=== PATIENT | male | born 1945 | race Caucasian/White ===

== ENCOUNTER → 2025-03-17 09:33 | Outpatient (REF) | payer MEDICARE, SELFPAY | LOC: WDC 09:33 | PROVIDERS: ATTENDING PHYSICIAN Student in an Organized Health Care Education/Training Program | DX: N63.23 Unspecified lump in the left breast, lower outer quadrant (principal) | CPT/HCPCS: 76642; 77062; 77066 ==

== ENCOUNTER → 2025-03-29 11:29 | Outpatient (REF) | payer MEDICARE, SELFPAY ==
--- NOTE | 2025-03-29 14:01 | OID.BR.INTR ---
JANETD Breast Navigator - Initial
- -
Date of Contact: 03/29/25
Met with patient. Patient given written information on navigator service available at [facility]. Will follow up as needed per protocol.
== END ==
LOC: WDC 11:29
PROVIDERS: ATTENDING PHYSICIAN Student in an Organized Health Care Education/Training Program
DX: N63.41 Unspecified lump in right breast, subareolar (principal); N63.21 Unspecified lump in the left breast, upper outer quadrant
CPT/HCPCS: 19083; 88112; 88305; 88341; 88342; 88360; A4648

== ENCOUNTER 2025-04-11 06:13 | Day surgery (SDC) | payer MEDICARE, SELFPAY ==
[2025-04-10 13:58] VITALS: BMI 30.5
[2025-04-11] VITALS (9 sets, daily range): BP systolic 95–136; BP diastolic 59–85; BMI 30.5
[2025-04-11 08:05] LABS: Glucose - Point of Care 145 mg/dl (70-99)
[2025-04-11] MEDS: NORMOSOL-R/PLASMALYTE-A 1000 IV (08:06)
[2025-04-11] MEDS: TYLENOL 1000 MG PO (08:06)
--- NOTE | 2025-04-11 10:03 | W.IMMPOSTOP ---
Surgical Immed Post Op Note
-
Primary Surgeon: Alem
Assisting Surgeon: None
Pre-op Diagnosis: Left breast mass
Post-op Diagnosis: Same
Procedure Performed: Excisional biopsy left breast mass
Anesthesia Type: TIVA
Specimen / Cultures: Left breast mass
Estimated Blood Loss: 4cc
Complications: None
Operative Findings: None
--- NOTE | 2025-04-11 10:04 | OR.RPT ---
Operative Report
Operative Report
Date of procedure: 04/11/2025
Surgeon: Alem
Preoperative diagnosis: Left breast mass
Postoperative diagnosis: Left breast mass
Procedure: Excisional biopsy left breast mass
The patient is a 79-year-old male diagnosed with right breast carcinoma who also had a very suspicious mass in the left breast. He underwent ultrasound-guided core biopsy of that mass but this just revealed hematoma and normal ductal epithelium.
He presents for excisional biopsy to establish diagnosis on the left side.
Patient presented to same-day surgical services where he was prepped. He verified same procedure. DVT and antibiotic prophylaxis were provided and he was transferred to the operating room. In the supine position intravenous sedation was
delivered. The left breast. And draped in usual sterile fashion and all team members performed an adequate timeout procedure.
Tissues were anesthetized with 1% lidocaine plain. A curvilinear incision was made overlying the lateral palpable mass. Skin flaps were elevated with the cautery and a wide resection of the mass was made using the cautery. Time out of body was
noted and the specimen was oriented and sent to the pathologist for permanent analysis. Hemostasis was carefully maintained. Marcaine 0.5% plain was instilled into all tissues and the wound was closed using simple interrupted 3-0 Vicryl on deep
intermediate in the subcutaneous tissue and skin was closed with a running subcuticular 4-0 Monocryl.
Surgical glue and a sterile compressive dressing were applied. All sponge needle and instrument counts were correct and the patient was transferred to the recovery room in stable condition
([id number])
[2025-04-11 10:16] LABS: Glucose - Point of Care 99 mg/dl (70-99)
== END 2025-04-11 12:00 | disposition home or self-care (01) ==
LOC: SDS 06:13
PROVIDERS: ATTENDING PHYSICIAN Surgery
DX: C50.922 Malignant neoplasm of unspecified site of left male breast (principal); Z17.410 Hormone receptor positive with human epidermal growth factor receptor 2 positive status
CPT/HCPCS: 19120; 82962; 88307; 88341; 88342; 88360

== ENCOUNTER 2025-05-02 07:29 | Inpatient (IN) | payer MEDICARE, SELFPAY ==
[2025-05-02] VITALS (21 sets, daily range): BP systolic 25–150; BP diastolic 56–84; BMI 30.2; BMI 30.5
[2025-05-02] MEDS: TYLENOL 1000 MG PO (09:07)
[2025-05-02 09:23] LABS: Glucose - Point of Care 83 mg/dl (70-99)
[2025-05-02] MEDS: NORMOSOL-R/PLASMALYTE-A 1000 IV (09:30)
[2025-05-02 09:48] LABS: Glucose - Point of Care 91 mg/dl (70-99)
[2025-05-02] MEDS: LOVENOX 40 MG SC (09:53)
[2025-05-02 11:05] LABS: Glucose - Point of Care 65 mg/dl (70-99)
[2025-05-02 11:09] LABS: Glucose - Point of Care 62 mg/dl (70-99)
[2025-05-02 12:13] LABS: Glucose - Point of Care 100 mg/dl (70-99)
[2025-05-02 13:16] LABS: Glucose - Point of Care 154 mg/dl (70-99)
[2025-05-02 14:30] LABS: Glucose - Point of Care 204 mg/dl (70-99)
[2025-05-02] MEDS: DILAUDID 0.5 MG IV (15:16)
[2025-05-02 15:19] LABS: Glucose - Point of Care 242 mg/dl (70-99)
--- NOTE | 2025-05-02 16:12 | CON.HOSP ---
Family Physician
-
Family Physician: Jorge A Zurita
Chief Complaint
-
Breast Ca s/p Bilateral Mastectomy
History of Present Illness
79M [place] Vet Parkinson's Dz Depression Insomnia IDDM Hypothyroidism here for Breast Ca s/p bilateral breast mastectomy and subsequently admitted for post-op care, monitoring flaps viability and for bleeding. Hospitalist service consulted for
medical mgmt and concern insulin pump dysfunction. Post-op notable for acute urinary retention difficult Blanco placement, placed by Urology. Seen and examined at bedside, no acute distress, resting comfortably in bed, stable respiratory status on
room air AOx3 conversant coherent. Some confusion/slurring of speech noted likely anesthesia/recent pain medication side effect. Pain well controlled at this time. Family ( Shahla, son Rudy, daughter Marija) present during evaluation. Insulin
pump noted functioning well as per family at bedside (earlier concern device not syncing with cellphones allayed, values noted to match hospital fingerstick values reasonably well). Family in process of ordering dinner for patient, aware to notify
nurse/staff if insulin pump not functioning- in which case plan would be to switch from pump to basal bolus sliding scale here.
Medical History
Allergies / Home Medications
Allergies reflects when Allergies were last updated in [facility].
Home Medications with original date entered in [facility]
Allergy/Medication List:
Allergies
Allergy/AdvReac Type Severity Reaction Status Date / Time
No Known Allergies Allergy Verified 05/02/25 08:59
Home Medications
aspirin 81 mg tablet,delayed release 81 mg PO DAILY 04/06/25
carbidopa 25 mg-levodopa 100 mg tablet (Sinemet) 1 tab PO TID 04/06/25
escitalopram oxalate 20 mg tablet (Lexapro) 20 mg PO DAILY 04/06/25
insulin aspart U-100 100 unit/mL subcutaneous solution (Novolog U-100 Insulin aspart) 0 unit SC DIRECTED insulin pump 04/06/25
levothyroxine 112 mcg tablet 112 mcg PO DAILY 04/06/25
bnhqtftm-hgm-qqmbb acid 200 mcg-vit K1 60 mcg-lycopene 600 mcg tablet (Men's Multivitamin) 1 tab PO DAILY 04/06/25
omeprazole 20 mg tablet,delayed release 20 mg PO DAILY 04/06/25
rosuvastatin 20 mg tablet 20 mg PO DAILY 04/06/25
sennosides 8.6 mg tablet 8.6 mg PO DAILY 04/06/25
clonazepam 0.25 mg disintegrating tablet 0.25 mg PO HS 04/25/25
Physical Exam
Vital Signs
Vital Signs
Temp Pulse Resp BP Pulse Ox
98.1 F 67 16 120/78 93
05/02/25 14:20 05/02/25 07:50 05/02/25 07:50 05/02/25 07:50 05/02/25 07:50
Impression / Plan
-
Physical Exam
General: No pallor, cyanosis, or jaundice.
HEENT: Throat clear. PERRLA Normocephalic atraumatic
NECK: Supple. No JVD Carotid Bruits
RESPIRATORY: Lungs clear to auscultation. No crackles wheezes stridor
CVS: S1, S2 normal. RRR. No murmur, rub or gallop.
ABDOMEN: Soft, non-tender. No distension. BS+/normal.
EXTREMITIES: No peripheral cyanosis or edema.
.NET ARCHITECT: AOx3 conversant coherent
Psych: Calm
Derm: chest dressing clean dry intact
IMPRESSION:
79M [place] V[place] Parkinson's Dz Depression Insomnia IDDM Hypothyroidism here for Breast Ca s/p bilateral breast mastectomy and subsequently admitted for post-op care, monitoring flaps viability and for bleeding. Hospitalist service consulted for
medical mgmt and concern insulin pump dysfunction. Post-op notable for acute urinary retention difficult Blanco placement, placed by Urology.
PLAN:
#Breast Cancer s/p b/l Mastectomy
Post-op care as per primary Breast Surgery Oncology
Pain control
#Acute Urinary Retention
possible side effect residual anesthesia
Urology eval appreciated Blanco placed, maintain, Flomax started/cont
#IDDM
cont w/ pt's own insulin pump
If pump not functioning appropriately, may consider switching to medium dose sliding scale Novolog 5U AC and Lantus 15U HS
Routine FS monitoring
#Parkinson
cont home Sinemet
#Depression
cont home Lexapro
#Insomnia
cont HSPRN Klonopin
DVT ppx SCDs
Full Code
Discussed with patient, patient's Shahla, son Rudy, and daughter Marija
I spent a total of 77 minutes with the patient or on the floor. More than 50% of this time involved counseling and coordination of care.
--- NOTE | 2025-05-02 16:28 | CONS.URO ---
Consultation
-
Date/Time Consultation Performed: 05/02/25 1616
Requesting Provider: Alem
Performing Provider: Bud
Reason for Consultation: AUR
Medical History
History of Present Illness
s/p bilateral mastectomies
CNV in PACU; RN could not pass Blanco
Past Medical History
Past Medical History: Hypercholesterolemia, Hypothyroidism and NIDDM
Past Surgical History: Other (mastectomies; hernia repair; ortho)
Allergies/Home Medications
Allergies
Allergy/AdvReac Type Severity Reaction Status Date / Time
No Known Allergies Allergy Verified 05/02/25 08:59
Home Medications
�Medication �Instructions �Recorded �Confirmed �Type
aspirin 81 mg tablet,delayed 81 mg PO DAILY 04/06/25 05/02/25 History
release
carbidopa 25 mg-levodopa 100 mg 1 tab PO TID 04/06/25 05/02/25 History
tablet (Sinemet)
escitalopram oxalate 20 mg tablet 20 mg PO DAILY 04/06/25 05/02/25 History
(Lexapro)
insulin aspart U-100 100 unit/mL 0 unit SC DIRECTED insulin pump 04/06/25 05/02/25 History
subcutaneous solution (Novolog
U-100 Insulin aspart)
levothyroxine 112 mcg tablet 112 mcg PO DAILY 04/06/25 05/02/25 History
lagtytws-cmz-bokao acid 200 1 tab PO DAILY 04/06/25 05/02/25 History
mcg-vit K1 60 mcg-lycopene 600 mcg
tablet (Men's Multivitamin)
omeprazole 20 mg tablet,delayed 20 mg PO DAILY 04/06/25 05/02/25 History
release
rosuvastatin 20 mg tablet 20 mg PO DAILY 04/06/25 05/02/25 History
sennosides 8.6 mg tablet 8.6 mg PO DAILY 04/06/25 05/02/25 History
clonazepam 0.25 mg disintegrating 0.25 mg PO HS 04/25/25 05/02/25 History
tablet
Physical Exam
Vital Signs
Vital Signs
Temp Pulse Resp BP Pulse Ox
98.1 F 67 16 120/78 93
05/02/25 14:20 05/02/25 07:50 05/02/25 07:50 05/02/25 07:50 05/02/25 07:50
Physical Exam
adult male in bed in PACU
Genito-urinary: Other (phallus prepped; 16 fr coude-tipped Blanco placed with return of urine and relief of pain)
Assessment / Plan
-
post-op AUR
Blanco overnight
Tamsulosin
Data Reviewed
-
Old Records: Reviewed
[2025-05-02] MEDS: SINEMET 25-100 1 TABLET PO ×2 (17:15→21:33)
[2025-05-02] MEDS: PT'S OWN INSULIN PUMP - NovoLOG SC (17:30)
[2025-05-02 17:38] LABS: Glucose - Point of Care 319 mg/dl (70-99)
[2025-05-02] MEDS: FLOMAX 0.4 MG PO (18:03)
[2025-05-02] MEDS: PT'S OWN INSULIN PUMP - NovoLOG 5.5 UNIT SC (18:27)
[2025-05-02 21:05] LABS: Glucose - Point of Care 262 mg/dl (70-99)
--- NOTE | 2025-05-02 21:19 | W.PN.UPDATE ---
Update Note
Progress Note Update
Patient is still complaining of burning and pressure at the lower of abdomen after comer replacement.
New recommendations received by urologist to start the patient on Tolteridine 4 mg po x 24 hrs and Diazepam 5 mg po tid prn refractory bladder spasms.
[2025-05-02] MEDS: COLACE PO (21:28)
[2025-05-02] MEDS: NSS 1000 IV (21:32)
[2025-05-02] MEDS: ANCEF 5 IV (21:32)
[2025-05-02] MEDS: PT'S OWN INSULIN PUMP - NovoLOG 3.9 UNIT SC (21:32)
[2025-05-02] MEDS: VALIUM 5 MG PO (21:33)
--- NOTE | 2025-05-02 21:58 | VATNOTE ---
Dr Ferrara gave permission to NJorge A, that either arm can be used for IV access. VAT aware.
[2025-05-02 23:00] LABS: Glucose - Point of Care 248 mg/dl (70-99)
[2025-05-02] MEDS: DETROL LA 4 MG PO (23:42)
[2025-05-03 03:32] VITALS: BP 116/60
[2025-05-03] MEDS: SYNTHROID 112 MCG PO (05:25)
[2025-05-03] MEDS: ANCEF 5 IV (05:26)
[2025-05-03 05:38] VITALS: BMI 30.3
[2025-05-03 07:20] VITALS: BP 137/68
--- NOTE | 2025-05-03 07:23 | W.IMMPOSTOP ---
Surgical Immed Post Op Note
-
Primary Surgeon: Alem
Assisting Surgeon: None
Pre-op Diagnosis: Bilateral breast cancer
Post-op Diagnosis: Bilateral breast cancer
Procedure Performed: bilateral mastectomies and bilateral sentine node mapping and biopsies
Anesthesia Type: GET
Specimen / Cultures: Bilateral breasts; bilateral sentinel nodes
Estimated Blood Loss: 50cc
Complications: None
Operative Findings: None
--- NOTE | 2025-05-03 07:25 | OR.RPT ---
Operative Report
Operative Report
Operative date: 05/02/2025
Surgeon: Alem
Preoperative diagnosis: Bilateral breast carcinoma
Postoperative diagnosis: Bilateral breast carcinoma
Procedure: Bilateral mastectomy with bilateral sentinel lymph node mapping and biopsy
Patient is a 79-year-old female presenting with bilateral palpable breast masses leading to biopsy showing bilateral favorable breast carcinoma. He presents for bilateral mastectomies and sentinel lymph node mapping and biopsy.
On the day of surgery he presented to the same-day surgical services unit. He was transferred to nuclear medicine where bilateral technetium radiotracer was injected into the breast parenchyma. DVT and antibiotic prophylaxis were provided and he
verified site and procedure.
He was transferred to the operating room and in the supine position general anesthesia was induced. Both breasts were prepped and draped in the usual sterile fashion. Both sides were approached in the following fashionStandard Ramirez incision was
made sharply with the blade and skin flaps were elevated using a PlasmaBlade. Larger vessels were controlled with 3-0 silk tie or suture ligature. Dissection was carried down to the chest wall and the breast was removed from the chest using in a
superior to inferior direction. Time out of body was noted and specimen was oriented for the pathologist.
This allowed entry into the axilla and clavipectoral fascia was incised with the PlasmaBlade. Using a neoprobe and palpation sentinel nodes were identified and removed. Feeding vessels to the nodes were controlled with 3-0 silk tie. After the
removal there is a greater than fourfold reduction of background count. Wound was irrigated and suctioned with warm water hemostasis was carefully maintained and a round Alfred drain was passed through the inferior skin flap and secured to the skin
using 2-0 nylon. Skin was closed using INSORB and running subcuticular 4-
O Monocryl.
In the exact same fashion the opposite side was approached and removed. Sterile compressive dressings were applied and the patient was transferred to the recovery room in stable condition
([id number], [id number])
[place] Node Bx Breast Cancer
[place] Node Bx Breast Cancer
Operation performed with curative intent: Yes
Tracer(s) to ID [place] Nodes in Non-Neoadjuvant setting: Radioactive Tracer
Tracer(s) to ID Sentinal Nodes in the Neoadjuvant Setting: N/A
All nodes at end of dye-filled Lymphatic Channel removed: N/A
All Significantly Radioactive Nodes were removed: Yes
All Palpably Suspicious Nodes were Removed: Yes
Bx Proven Pos Nodes Marked Prior to Chemo ID'd & Removed: N/A
[2025-05-03 07:41] LABS: Glucose - Point of Care 108 mg/dl (70-99)
--- NOTE | 2025-05-03 07:44 | PTCARENOTE ---
At the start of shift, patient was complaining of a burning sensation and pressure. Blanco noted to have rox/yellow urine with sediment/ small blood clots. Bladder scanned patient for 0 mL. BLEACHING MACHINE OPERATOR notified. IV fluids ordered and hung-- see OCT. On-call
urologist notified per BLEACHING MACHINE OPERATOR. Valium and Tolteridine ordered and administered-- see MAR. Patient reports subsiding of symptoms with mild pressure at times. Blanco still draining rox urine with sediment/ small blood clots.
[2025-05-03 07:55] LABS: Hematocrit 38.2 % (39.0-52.0); Hemoglobin 12.8 g/dL (13.0-18.0); Mean Corp Hgb Conc. 33.5 g/dL (33.0-37.0); Mean Corpuscular Volume 92.0 fL (80.0-94.0); Platelet Count 228 10^3/uL (130-400); Red Cell Dist. Width 13.1 % (11.5-14.5)
--- NOTE | 2025-05-03 08:30 | W.PN.URO.CBU ---
Today's Communication / Plan
-
voiding trial today
Assessment / Plan
-
post-op AUR
Diagnosis
-
Date of Service: May 03, 2025
-
Patient Diagnosis:
Post-op AUR
Subjective
-
pt previous seen by Dr Schultz, urologist at [facility], [facility], for 'BPH'
Objective
-
Vital Signs
Temp Pulse Resp BP Pulse Ox
98.1 F 84 18 116/60 93
05/03/25 03:32 05/03/25 03:32 05/03/25 03:32 05/03/25 03:32 05/03/25 03:32
Intake and Output
05/02/25 05/03/25 05/04/25
06:59 06:59 06:59
Intake Total 980 / 980
Output Total 1358 / 1358
Balance -378 / -378
Intake:
Oral fluids 290 / 290
IV fluids (Total) 690 / 690
normosol 200 / 200
Output:
Drain Output (Total) 198 / 198
Left Breast 91 / 91
Right Breast 107 / 107
Urine, Blanco 1160 / 1160
Laboratory Results
05/03/25 06:56
Physical Exam
-
General - well developed, well nourished, no acute distress
\\
Genitalia - Blanco draining rox urine
Care Review
Data Reviewed
Discussed with: Family ( at bedside)
[2025-05-03 08:36] LABS: Blood Urea Nitrogen 37 mg/dl (9-20); Calcium 8.5 mg/dl (8.4-10.2); Carbon Dioxide 23 mmol/L (22-30); Chloride 106 mmol/L (98-107); Estimated Creatinine Clearance 63 ml/min; Glucose 119 mg/dl (70-99); Potassium 4.2 mmol/L (3.5-5.1); Sodium 134 mmol/L (135-145); eGFR > 60.00
--- NOTE | 2025-05-03 08:41 | W.PN.HOSP.TC ---
Today's Communication/Plan
-
see a/p
Assessment / Plan
Assessment / Plan
Physical Exam
General: No pallor, cyanosis, or jaundice.
HEENT: Throat clear. PERRLA Normocephalic atraumatic
NECK: Supple. No JVD Carotid Bruits
RESPIRATORY: Lungs clear to auscultation. No crackles wheezes stridor
CVS: S1, S2 normal. RRR. No murmur, rub or gallop.
ABDOMEN: Soft, non-tender. No distension. BS+/normal.
EXTREMITIES: No peripheral cyanosis or edema.
BOTTOM POLISHER: AOx3 conversant coherent
Psych: Calm
Derm: chest dressing clean dry intact
IMPRESSION:
79M [place] Vet Parkinson's Dz Depression Insomnia IDDM Hypothyroidism here for Breast Ca s/p bilateral breast mastectomy and subsequently admitted for post-op care, monitoring flaps viability and for bleeding. Hospitalist service consulted for
medical mgmt and concern insulin pump dysfunction. Post-op notable for acute urinary retention difficult Blanco placement, placed by Urology.
PLAN:
#Breast Cancer s/p b/l Mastectomy
Post-op care as per primary Breast Surgery Oncology
Pain control
#Acute Urinary Retention
possible side effect residual anesthesia
Urology eval appreciated Blanco placed since discontinued for trial of void
#IDDM
cont w/ pt's own insulin pump functioning well
Euglycemic
#Parkinson
cont home Sinemet
#Depression
cont home Lexapro
#Insomnia
cont HSPRN Klonopin
DVT ppx SCDs
Full Code
Discussed with patient and patient's Shahla
I spent a total of 40 minutes with the patient or on the floor. More than 50% of this time involved counseling and coordination of care.
Anticipated Discharge: Today
Subjective/Interval History
-
Date of Service: May 03, 2025
No acute distress, overall reports feeling well. Blanco removed, in process of trial of void. Sugars noted well controlled at this time.
Objective Data
-
Labs:
Laboratory Results
05/03/25
06:56
WBC 12.2 H
Hgb 12.8 L
Hct 38.2 L
Plt Count 228
Sodium 134 L
Potassium 4.2
Chloride 106
Carbon Dioxide 23
BUN 37 H
Creatinine 1.0
Glucose 119 H
Calcium 8.5
Vital Signs:
Vital Signs
Temp Pulse Resp BP Pulse Ox
98.4 F 82 18 137/68 97
05/03/25 07:20 05/03/25 07:20 05/03/25 07:20 05/03/25 07:20 05/03/25 07:20
I&O
05/02/25 05/03/25 05/04/25
06:59 06:59 06:59
Intake Total 980 / 980
Output Total 1358 / 1358
Balance -378 / -378
[2025-05-03] MEDS: PT'S OWN INSULIN PUMP - NovoLOG 5 UNIT SC (09:27)
[2025-05-03] MEDS: CRESTOR 20 MG PO (09:29)
[2025-05-03] MEDS: COLACE 100 MG PO (09:29)
[2025-05-03] MEDS: LEXAPRO 20 MG PO (09:29)
[2025-05-03] MEDS: FLOMAX 0.4 MG PO (09:29)
[2025-05-03] MEDS: PROTONIX 40 MG PO (09:29)
[2025-05-03] MEDS: SINEMET 25-100 1 TABLET PO (09:29)
--- NOTE | 2025-05-03 10:41 | PTCARENOTE ---
pt comer catheter pulled this morning at 0930 per order. voiding trial initiated. pt educated on goal and continues to take flomax at this time to help with urinary retention. IVF discontinued. pt oob to chair for first time since surgery with this
nurse. MALISSA drains with bloody drainage and binder remains intact at this time.
[2025-05-03 11:05] VITALS: BP 138/79
[2025-05-03 12:03] LABS: Glucose - Point of Care 188 mg/dl (70-99)
[2025-05-03] MEDS: PT'S OWN INSULIN PUMP - NovoLOG 6 UNIT SC (12:29)
[2025-05-03 12:33] VITALS: BMI 30.3
--- NOTE | 2025-05-03 13:59 | VNURNOTE ---
Home Health Liaison met with patient and spouse at bedside to discuss [facility] nurse/therapy, visits, schedule and homebound status. Patient is agreeable and understands that visits at home will be 2-3 x per week to assess and teach medical and drain
management. Both are aware that [facility] will contact them for start of care in 1-2 days after discharge from .
[facility] referral completed in [facility].
--- NOTE | 2025-05-03 14:32 | W.PN.UPDATE ---
Update Note
Progress Note Update
Pt is POD #1 s/P bilateral mastectomies and sentinel node mapping and biopsies. Had PO urinary retention requiring Blanco catheter insertion by Urology. Now able to void. Flaps viable and no evidence of infection. Discharge to home with VNA in place.
Return to my office in 2 weeks.
--- NOTE | 2025-05-03 14:35 | W.DS.TRANS ---
DC Summary - Cardiac Rehabilitation Program Director
-
Discharge Instructions:
Sleep Apnea Risk Low
Instructions:
Stand-Alone Forms:
Changes to Home Medications: Yes
Discharge Medications:
DC Medications w/original date entered in [facility]
aspirin 81 mg tablet,delayed release 81 mg PO DAILY Blood Clot Prevention/Tx 04/06/25
carbidopa 25 mg-levodopa 100 mg tablet (Sinemet) 1 tab PO TID Neurological Condition 04/06/25
escitalopram oxalate 20 mg tablet (Lexapro) 20 mg PO DAILY Depression 04/06/25
insulin aspart U-100 100 unit/mL subcutaneous solution (Novolog U-100 Insulin aspart) 0 unit SC DIRECTED insulin pump 04/06/25
levothyroxine 112 mcg tablet 112 mcg PO DAILY Thyroid 04/06/25
dbrnfbyo-swb-bxhpn acid 200 mcg-vit K1 60 mcg-lycopene 600 mcg tablet (Men's Multivitamin) 1 tab PO DAILY Supplement 04/06/25
omeprazole 20 mg tablet,delayed release 20 mg PO DAILY Gastrointestinal Issue 04/06/25
rosuvastatin 20 mg tablet 20 mg PO DAILY 04/06/25
sennosides 8.6 mg tablet 8.6 mg PO DAILY 04/06/25
clonazepam 0.25 mg disintegrating tablet 0.25 mg PO HS Sleep 04/25/25
tamsulosin 0.4 mg capsule 0.4 mg PO DAILY #30 caps 05/03/25
Home Medication Changes
Pending Results: Yes (bilateral breasts and sentinel nodes)
--- NOTE | 2025-05-03 14:45 | CM ---
CM following re: discharge planning.
Reviewed pt's chart, met with pt and pt's spouse at bedside.
Pt is a 79 year old male, admitted with primary dx of s/p bilateral mastectomies and bilateral sentine node mapping and biopsies.
Pt reports he lives with spouse 2[facility] 55+ community, 2 steps to enter, has 3 supportive children.
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 No DME, VN or SNF history.
CM consult to arrange VN services for drain care noted. Pt preferred [facility],. A referral to [facility] made.
Discharge order noted. Both pt and his spouse are aware, expressed their agreement. IMM reviewed, placed on chart, pt has a copy.
[facility] discharge instructions fax: [phone]
d/c plan: hoe with [facility] and family support. Spouse to transport.
[2025-05-03 15:02] VITALS: BP 161/71
== END 2025-05-03 15:37 | disposition hospice, home (50) | DRG 581 ==
LOC: 2 NORTH 07:29
PROVIDERS: ADMITTING PHYSICIAN Surgery; CONSULT PHYSICIAN Internal Medicine; CONSULT PHYSICIAN Specialist; FAMILY PHYSICIAN Internal Medicine
PROC: 07B50ZZ Excision of Right Axillary Lymphatic, Open Approach (ICD-10-PCS; 2025-05-03)
PROC: 07B60ZZ Excision of Left Axillary Lymphatic, Open Approach (ICD-10-PCS; 2025-05-03)
PROC: 0HTV0ZZ Resection of Bilateral Breast, Open Approach (ICD-10-PCS; 2025-05-03)
DX: C50.922 Malignant neoplasm of unspecified site of left male breast (principal); C50.921 Malignant neoplasm of unspecified site of right male breast; E11.9 Type 2 diabetes mellitus without complications; Z79.4 Long term (current) use of insulin; E03.9 Hypothyroidism, unspecified; G20.A1 Parkinson's disease without dyskinesia, without mention of fluctuations; F32.A Depression, unspecified; K21.9 Gastro-esophageal reflux disease without esophagitis; Z79.82 Long term (current) use of aspirin; E78.00 Pure hypercholesterolemia, unspecified; Z79.890 Hormone replacement therapy; Z79.899 Other long term (current) drug therapy
CPT/HCPCS: 38792; 76942; 80048; 82962; 85027; 88307; 88342; A9541; C1729; L8000

== ENCOUNTER → 2025-05-10 09:40 | Outpatient (REF) | payer MEDICARE, SELFPAY | LOC: CLAB 09:40 | PROVIDERS: ATTENDING PHYSICIAN Surgery; FAMILY PHYSICIAN Internal Medicine | DX: L03.313 Cellulitis of chest wall (principal) | CPT/HCPCS: 87070; 87205 ==